=== PATIENT | male | born 1985 | race Caucasian/White ===

== ENCOUNTER 2017-02-04 12:26 | Outpatient (CLI) | payer OTHER ==
--- NOTE | 2017-02-04 14:03 | Diagnostic Imaging Report ---
Indication: COUGH Technique: 2 views of the chest Comparison: none. Findings: Lungs and pleural spaces are clear. Heart size is normal. Bones are unremarkable.. Impression: No acute process
== END 2017-02-04 14:26 | disposition home or self-care (01) ==
LOC: RAD 12:26
DX: R05 Cough (principal)
CPT/HCPCS: 71020